=== PATIENT | female | born 1980 | race Caucasian/White ===

== ENCOUNTER 2019-07-18 08:47 | Inpatient (IN) | payer BC ==
[2019-07-14 09:48] VITALS: BMI 39.2
[~2019-07-18 08:47] MED LIST: ALBUTEROL SO4 8 GM HFA INHALER IH PRN
[2019-07-18] MEDS ORDERED: SUCCINYLCHOLINE CHLORIDE 200 MG/10 ML SYRINGE ONE (08:59)
[2019-07-18] MEDS ORDERED: PROPOFOL 20 ML ONE (08:59)
[2019-07-18] MEDS ORDERED: ROCURONIUM BROMIDE 50 MG/5 ML SYRINGE ONE (08:59)
[2019-07-18] MEDS ORDERED: MIDAZOLAM HCL 2 MG/2 ML SINGLE DOSE VIAL ONE (09:01)
[2019-07-18] MEDS ORDERED: ROPIVACAINE HCL 0.5% 30ML VIAL ONE (09:02)
[2019-07-18] MEDS ORDERED: BUPIVACAINE HCL 0.25% 125 MG/50 ML VIAL ONE (09:18)
--- NOTE | 2019-07-18 09:44 | HP ---
Admitting History and Physical - Admission Chief Complaint: Morbid obesity History Source: Patient Limitations to Obtaining History: No Limitations - Past Medical History Pulmonary: Yes: Asthma ...LMP: 06/23/19 ...: No - Past Surgical History Additional Past Surgical History: C spine fusion - Smoking History Smoking history: Former smoker Have you smoked in the past 12 months: No If you are a former smoker, when did you quit?: 05/27 - Alcohol/Substance Use Hx Alcohol Use: No - Social History ADL: Independent Home Medications - Allergies Allergies/Adverse Reactions: Allergies Allergy/AdvReac Type Severity Reaction Status Date / Time No Known Allergies Allergy Verified 07/14/19 09:37 - Home Medications Home Medications: Ambulatory Orders Albuterol Sulfate [Albuterol Sulfate Hfa] 1 puff IH ASDIR PRN 07/14/19 Cabergoline 0.5 mg PO ASDIR 07/14/19 Calcium Carbonate [Tums] 200 mg PO DAILY 07/14/19 Cholecalciferol (Vitamin D3) [Vitamin D3] 1,000 unit PO DAILY 07/14/19 Multivitamins [Tab-A-Vit -] 1 tab PO DAILY 07/14/19 Oxycodone HCl [Oxycodone HCl ER] 20 mg PO BID 07/14/19 Dextroamphetamine/Amphetamine [Adderall Xr 30 mg Capsule] 60 mg PO DAILY Docusate Sodium [Colace -] 100 mg PO TID #90 capsule 07/18/19 Famotidine [Pepcid] 20 mg PO BID #60 tablet 07/18/19 Ondansetron [Zofran -] 8 mg PO TID #30 tablet 07/18/19 Family Medical History Family History: Denies Review of Systems - Review of Systems Constitutional: denies: Chills, Fever Neck: reports: No Symptoms Cardiovascular: reports: No Symptoms Respiratory: reports: No Symptoms Gastrointestinal: reports: No Symptoms Neurological: reports: No Symptoms Pain Intensity: 0 Physical Examination Vital Signs: Vital Signs Temperature 97.8 F 07/18/19 09:26 Pulse Rate 79 07/18/19 09:26 Respiratory Rate 20 07/18/19 09:26 Blood Pressure 113/67 07/18/19 09:26 O2 Sat by Pulse Oximetry (%) Constitutional: Yes: Calm HENT: Yes: WNL Neck: Yes: WNL Cardiovascular: Yes: Regular Rate and Rhythm Respiratory: Yes: Regular Gastrointestinal: Yes: Soft, Abdomen, Obese Neurological: Yes: Alert, Oriented Problem List - Problems (1) Morbid obesity due to excess calories Code(s): E66.01 - MORBID (SEVERE) OBESITY DUE TO EXCESS CALORIES Assessment/Plan Laparoscopic possible open vertical sleeve gastrectomy possible liver biopsy, upper endoscopy
[2019-07-18] MEDS ORDERED: LIDOCAINE HCL/PF 2% SDV 5ML VIAL ONE (09:51)
[2019-07-18] MEDS ORDERED: ONDANSETRON 4 MG/2 ML VIAL ONE ×2 (10:17→10:57)
[2019-07-18] MEDS ORDERED: DEXAMETHASONE SOD PHOSPHATE 4 MG/1 ML VIAL ONE (10:17)
[2019-07-18] MEDS ORDERED: ceFAZolin SODIUM 1 GM VIAL ONE (10:25)
[2019-07-18] MEDS ORDERED: HYDROmorphone HCL/PF 1 MG/ML AMP ONE ×2 (10:30→11:24)
[2019-07-18] MEDS ORDERED: NEOSTIGMINE METHYLSULFATE 0.5 MG/ML - 10 ML MDV ONE (11:04)
[2019-07-18] MEDS ORDERED: GLYCOPYRROLATE 0.2 MG/1 ML VIAL ONE (11:07)
[2019-07-18] MEDS ORDERED: BUPIVACAINE HCL/PF 0.25% (2.5MG/ML) 10 ML VIAL IJ ONE (11:09)
--- NOTE | 2019-07-18 11:18 | OP ---
Operative Note - Note: Operative Date: 07/18/19 Pre-Operative Diagnosis: Morbid obesity Operation: Diagnostic laparoscopy. Laparoscopic vertical sleeve gastretcomy. Laparoscopic wedge liver biopsy Post-Operative Diagnosis: Same as Pre-op (as well as hepatomegaly) Surgeon: Graeme Chavis Licensed Electrician: Pa Gutierres Anesthesia: General Specimens Removed: Greater curvature of stomach. Liver biopsy Estimated Blood Loss (mls): 30 Drains & Tubes with Location: 36 Fr Bougie Operative Report Dictated: Yes
[2019-07-18] MEDS ORDERED: HYDROmorphone HCL 0.5 MG/0.5 ML SYRINGE ONE ×5 (11:35→12:48)
[2019-07-18] MEDS ORDERED: HYDROmorphone HCL CARPU-JECT 1 MG/1 ML DISP.SYRIN IVPUSH PRN ×2 (11:44→13:32)
[2019-07-18] MEDS ORDERED: FAMOTIDINE 20 MG/50 ML IVPB 20 MG/50 ML MG IVPB ONE (11:45)
[2019-07-18] MEDS ORDERED: FAMOTIDINE 20 MG PREMIXED IVPB IVPB ONE (12:00)
[2019-07-18] MEDS ORDERED: ACETAMINOPHEN 1000 MG/100 ML VIAL (NON FORMULARY) IVPB SCH (12:00)
[2019-07-18] MEDS ORDERED: METOCLOPRAMIDE HCL INJECTION 10 MG/2 ML VIAL IVPUSH SCH (12:00)
--- NOTE | 2019-07-18 12:29 | SPEC ---
DATE OF OPERATION: 07/18/2019 PLACE OF SERVICE: [facility], [address] [place] [address] SURGEON: Graeme Chavis MD BLOCK CLEANER: Pa Gutierres MD PREOPERATIVE DIAGNOSIS: Morbid obesity. POSTOPERATIVE DIAGNOSES: 1. Morbid obesity. 2. Hepatomegaly. PROCEDURES: 1. Diagnostic laparoscopy. 2. Laparoscopic vertical sleeve gastrectomy. 3. Laparoscopic wedge liver biopsy. ESTIMATED BLOOD LOSS: 30 mL. DRAIN: None. ANESTHESIA: GET. BOUGIE SIZE: 36-Kyrgyz. SPECIMENS: 1. Greater curvature of the stomach. 2. Liver biopsy. REASON FOR PROCEDURE: This is a 39-year-old female who presents for weight loss options. After describing different options, she decided to proceed with a laparoscopic, possible open, vertical sleeve gastrectomy, possible liver biopsy, upper endoscopy. The patient was seen by the respective subspecialties and cleared for surgery. The risks and benefits of the procedure were explained. These included bleeding, infection, hernia, IL, DVT, PE, injury to surrounding structures including the liver, colon, bowel, spleen, esophagus, vessel injury, nerve injury, weight regain, gastric leak, staple line leak, sleeve leak, obstruction, vitamin deficiency, hair loss and as some of the possible complications. The patient understood and signed informed consent. DESCRIPTION OF PROCEDURE: The patient was placed supine on the operating room table. The patient underwent general endotracheal intubation. The arms were brought out at 90 degrees and secured. A footboard was placed and the legs were secured laterally with padding. The abdomen was prepped and draped in the usual sterile fashion. A timeout was performed. An incision was made in the left upper quadrant and a Veress needle inserted. Pneumoperitoneum was established. Subsequently, the Veress needle was removed and a 5-mm trocar was placed under direct visualization with the laparoscope. The laparoscopic camera was then inserted and inspection of the abdominal cavity was performed. An incision was then made in the supraumbilical area and a 15-mm trocar was placed under direct visualization. A 5-mm trocar was then placed in the right upper quadrant and a 5-mm trocar was placed below the left subcostal margin. A stab wound was made in the subxiphoid area and a Maritza clamp inserted and removed to dilate the tract. A Dilan liver retractor was inserted. The post was secured at the bedside by the nursing staff. The patient was placed in steep reverse Trendelenburg position and the Dilan liver retractor was used to secure the liver towards the anterior abdominal wall. The pylorus was identified and 6 cm proximal to it, the lesser sac was entered using the LigaSure device. All lateral attachments to the greater curvature of the stomach, including the short gastric vessels, were ligated using the LigaSure device toward the gastrosplenic and gastrophrenic ligaments. Once this was done in its entirety, it was confirmed that all tubes within the nasal or oropharyngeal cavity, including a temperature probe were removed by Anesthesia. The bougie was then inserted by Anesthesia. Transection of the stomach was then begun staying adjacent to the bougie but away from the angularis. Transection of the stomach was performed near the portion of the stomach where the lesser sac was entered. Two laparoscopic Endo-MARY KATE black yas were used at this location. Laparoscopic Endo MARY KATE purple staple loads were then used for the remainder of the transection until the greater curvature of the stomach was fully transected. This was done staying close to the bougie. Care was taken to stay away from the angle of His cephalad. The staple line was then inspected. Hemostasis was identified. A leak test was then performed. It was clamped distally to the staple line. Irrigation solution was placed in the left upper quadrant and air was insufflated by Anesthesia into the sleeve. No leaks were identified. No obstruction was identified. This was done through the entirety of the staple line. The stomach was suctioned and the bougie removed fully intact under direct visualization. At this point, the irrigation solution was suctioned and again, hemostasis was noted. A wedge liver biopsy was then performed. The left lobe of the liver was identified. A portion of the edge of the left lobe of the liver was grasped. Using electrocautery, a wedge of the left liver was excised. The specimen was removed and sent off the field. Hemostasis of the wedge liver biopsy site was attained and noted using electrocautery. The 15-mm supraumbilical trocar was then removed and the greater curvature specimen removed from the site using a sponge stick viveros. A Delta-Flory device was then used to close the fascia with a 0 Vicryl suture at the site. Again, hemostasis was noted. The Dilan liver retractor was then removed under direct visualization. Pneumoperitoneum was desufflated. Hemostasis was noted at all incision sites and Marcaine was injected at all incision sites. A 3-0 Vicryl suture was used to close the deep subcutaneous tissue at the 15-mm incision site. All incision sites were closed using 4-0 Biosyn. Sterile dressings were applied. The patient tolerated the procedure well and was transferred to the recovery room in stable condition. Edith [id number] MTDD
[2019-07-18 13:19] LABS: HEMATOCRIT 40.1 % (32.4-45.2); HEMOGLOBIN 13.5 GM/dl (10.7-15.3); MCH 30.1 pg (25.7-33.7); MCHC 33.6 g/dl (32.0-36.0); MEAN CELL VOLUME 89.6 fl (80-96); MEAN PLT VOLUME 9.6 fl (7.5-11.1); PLATELET COUNT 318 K/MM3 (134-434); RBC 4.48 M/mm3 (3.60-5.2); RDW 11.8 % (11.6-15.6); WHITE BLOOD COUNT 12.3 K/mm3 (4.0-10.8)
[2019-07-18 13:21] LABS: ALBUMIN 3.7 g/dl (3.4-5.0); BILIRUBIN,TOTAL 0.6 mg/dl (0.2-1); CALCIUM 8.6 mg/dl (8.5-10); CREATININE 0.8 mg/dl (0.55-1.3); POTASSIUM 4.4 mmol/L (3.5-5.1); TOT PROT 6.3 g/dl (6.4-8.2)
[2019-07-18] MEDS: HYDROmorphone HCL CARPU-JECT 1 MG/1 ML DISP.SYRIN IVPB PRN ×3 (13:48→23:37)
[2019-07-18] MEDS: SODIUM CHLORIDE 1,000 ML IV SCH (15:30)
[2019-07-18] MEDS: ONDANSETRON 4 MG/2 ML VIAL IVPUSH SCH ×2 (18:00→20:23)
[2019-07-18] MEDS: ACETAMINOPHEN 1000 MG/100 ML VIAL (NON FORMULARY) IVPB SCH (18:16)
[2019-07-18] MEDS: METOCLOPRAMIDE HCL INJECTION 10 MG/2 ML VIAL IVPUSH SCH (18:16)
[2019-07-18] MEDS: FAMOTIDINE 20 MG/50 ML IVPB 20 MG/50 ML MG IVPB SCH (21:03)
[2019-07-18] MEDS: ENOXAPARIN NA (PORCINE) 40 MG/0.4 ML DISP.SYRIN SQ SCH (21:03)
[2019-07-19] MEDS: METOCLOPRAMIDE HCL INJECTION 10 MG/2 ML VIAL IVPUSH SCH ×3 (01:06→13:26)
[2019-07-19] MEDS: ONDANSETRON 4 MG/2 ML VIAL IVPUSH SCH ×5 (01:06→16:00)
[2019-07-19] MEDS: ACETAMINOPHEN 1000 MG/100 ML VIAL (NON FORMULARY) IVPB SCH ×2 (01:07→06:39)
[2019-07-19] MEDS: HYDROmorphone HCL CARPU-JECT 1 MG/1 ML DISP.SYRIN IVPB PRN ×3 (04:13→13:25)
[2019-07-19] MEDS ORDERED: ACETAMINOPHEN INJECTION 100 ML IVPB ONE (06:31)
--- NOTE | 2019-07-19 07:51 | PN ---
Addendum entered and electronically signed by Sachin Wright PA 07/19/19 11:32: UGI officially read as no extravasation of contrast. No evidence of gastric outlet obstruction. Start BST1 diet. DC home if tolerates Original Note: Progress Note (short form) - Note Progress Note: BARIATRIC SURGERY No acute events per RN notes. Alert. C/o mild incisional tenderness. Adequate pain control w/ medications ordered. Using her incentive spirometer as directed. OOB and ambulating unassisted. Voiding spontaneously. Denies n/v/f/c, CP, palpitations, SOB or MONTANO. Last Vital Signs Temp Pulse Resp BP Pulse Ox 97.6 F 84 16 118/71 100 07/19/19 03:00 07/19/19 03:00 07/19/19 03:00 07/19/19 03:00 07/19/19 03:00 Gen: alert. nad ABD: obese habitus. All surgical ports c/d/i. LE: SCDs bilat <Sachin Wirght - Last Filed: 07/19/19 07:51> - Note Progress Note: POD 1 No acute events Vital Signs Period Temp Pulse Resp BP Sys/Iros Pulse Ox Last 24 Hr 97.6 F-98.1 F 64-84 16-20 117-125/60-78 97-100 Abd soft CBC, BMP 07/19/19 12:25 UGI: no leak/obstruction Clears Discharge planning <Graeme Chavis - Last Filed: 07/19/19 12:55> Problem List - Problems (1) Morbid obesity due to excess calories Assessment/Plan: POD #1 s/p Laparoscopic vertical sleeve gastrectomy. Wedge liver biopsy. Going for UGI this morning, if negative will begin Bariatric Stage 1 Diet. Cont OOB and ambulate Incentive spirometer Pain management DVT PPX If tolerates diet will DC home later today Code(s): E66.01 - MORBID (SEVERE) OBESITY DUE TO EXCESS CALORIES (2) Hepatomegaly Code(s): R16.0 - HEPATOMEGALY, NOT ELSEWHERE CLASSIFIED <Sachin Wright - Last Filed: 07/19/19 07:51> - Problems (1) Morbid obesity due to excess calories Code(s): E66.01 - MORBID (SEVERE) OBESITY DUE TO EXCESS CALORIES <Graeme Chavis - Last Filed: 07/19/19 12:55>
[2019-07-19 08:16] LABS: HEMATOCRIT 38.5 % (32.4-45.2); HEMOGLOBIN 12.9 GM/dl (10.7-15.3); MCHC 33.5 g/dl (32.0-36.0); MEAN CELL VOLUME 89.7 fl (80-96); MEAN PLT VOLUME 9.6 fl (7.5-11.1); PLATELET COUNT 286 K/MM3 (134-434); RDW 11.7 % (11.6-15.6); WHITE BLOOD COUNT 18.3 K/mm3 (4.0-10.8)
[2019-07-19 09:05] LABS: ALBUMIN 3.5 g/dl (3.4-5.0); BILIRUBIN,TOTAL 0.8 mg/dl (0.2-1); CALCIUM 8.2 mg/dl (8.5-10); CREATININE 0.7 mg/dl (0.55-1.3); POTASSIUM 3.8 mmol/L (3.5-5.1); TOT PROT 6.1 g/dl (6.4-8.2)
[2019-07-19] MEDS: FAMOTIDINE 20 MG/50 ML IVPB 20 MG/50 ML MG IVPB SCH (09:51)
[2019-07-19] MEDS: ENOXAPARIN NA (PORCINE) 40 MG/0.4 ML DISP.SYRIN SQ SCH (09:51)
[2019-07-19] MEDS: SODIUM CHLORIDE 1,000 ML IV SCH (11:57)
[2019-07-19 12:39] LABS: HEMOGLOBIN 12.7 GM/dl (10.7-15.3); WHITE BLOOD COUNT 16.8 K/mm3 (4.0-10.8)
[2019-07-19 12:44] LABS: HEMATOCRIT 38.3 % (32.4-45.2); MCH 29.9 pg (25.7-33.7); MCHC 33.3 g/dl (32.0-36.0); MEAN CELL VOLUME 89.7 fl (80-96); MEAN PLT VOLUME 8.9 fl (7.5-11.1); PLATELET COUNT 298 K/MM3 (134-434); RBC 4.27 M/mm3 (3.60-5.2); RDW 11.5 % (11.6-15.6)
[2019-07-19 12:52] LABS: CALCIUM 8.3 mg/dl (8.5-10); CREATININE 0.7 mg/dl (0.55-1.3); POTASSIUM 3.6 mmol/L (3.5-5.1)
[2019-07-19] MEDS ORDERED: oxyCODONE HCL 5 MG TABLET PO PRN (12:55)
[2019-07-19] MEDS ORDERED: SODIUM CHLORIDE 1,000 ML IV SCH (13:00)
[2019-07-19 13:39] LABS: PLATELET ESTIMATE ADEQUATE
--- NOTE | 2019-07-19 15:16 | PN ---
Progress Note, Physician Chief Complaint: s/p gastric sleeve under general anesthesia History of Present Illness: post op day one with TAPS block for post op pain control - Current Medication List Current Medications: Active Medications Albuterol Sulfate (Ventolin Hfa Inhaler -) 2 puff IH Q6H PRN PRN Reason: WHEEZING Enoxaparin Sodium (Lovenox -) 40 mg SQ BID [facility] Last Admin: 07/19/19 09:51 Dose: 40 mg Hydromorphone HCl (Dilaudid Injection -) 1 mg IVPB Q3H PRN PRN Reason: PAIN LEVEL 4 - 6 Last Admin: 07/19/19 13:25 Dose: 1 mg Famotidine/Sodium Chloride (Pepcid 20 Mg Premixed Ivpb -) 20 mg in 50 mls @ 100 mls/hr IVPB BID [facility] Last Admin: 07/19/19 09:51 Dose: 100 mls/hr Sodium Chloride (Normal Saline -) 1,000 mls @ 75 mls/hr IV ASDIR PB Last Admin: 07/19/19 13:26 Dose: 75 mls/hr Metoclopramide HCl (Reglan Injection -) 10 mg IVPUSH Q6H PB Last Admin: 07/19/19 13:26 Dose: 10 mg Ondansetron HCl (Zofran Injection) 4 mg IVPUSH Q4H [facility] Last Admin: 07/19/19 13:25 Dose: 4 mg Oxycodone HCl (Roxicodone -) 5 mg PO Q4H PRN PRN Reason: PAIN LEVEL 4 - 6 - Objective Vital Signs: Vital Signs Temperature 98.1 F 07/19/19 11:00 Pulse Rate 72 07/19/19 11:00 Respiratory Rate 17 07/19/19 11:00 Blood Pressure 125/78 07/19/19 11:00 O2 Sat by Pulse Oximetry (%) 100 07/19/19 03:00 Cardiovascular: Yes: WNL Respiratory: Yes: WNL Gastrointestinal: Yes: WNL Labs: CBC, BMP 07/19/19 12:25 07/19/19 12:25 Assessment/Plan No adverse anesthetic complications, dept of anesthesia will sign off care at this time
[2019-07-19 15:27] VITALS: BP 135/77; PULSE 65; TEMP 98
--- NOTE | 2019-07-21 09:47 | PATH ---
Surgical Pathology Report Patient Name: VELMA SANCHEZ Med. Rec. #: [id number] /Age/Gender: 1980 (Age: 39) / F Account: [id number] Location: [facility] MED-SURG Taken: 07/18/2019 Received: 07/18/2019 Reported: 07/21/2019 Physicians: Graeme Chavis M.D. Specimen(s) Received A: GREATER CURVATURE STOMACH B: LIVER BIOPSY Clinical History Morbid obesity Final Diagnosis A. GREATER CURVATURE, STOMACH, LAPAROSCOPIC GASTRIC SLEEVE EXCISION: PORTION OF STOMACH SHOWING MILD CHRONIC MUCOSAL INFLAMMATION. IMMUNOSTAIN IS NEGATIVE FOR H. PYLORI ORGANISMS. B. LIVER, BIOPSY: LIVER SHOWING MILD STEATOSIS (< 5%). TRICHROME STAIN SHOWS NO APPRECIABLE INCREASE IN FIBROSIS. IRON STAIN SHOWS NO INCREASE IN IRON DEPOSITS. Electronically Signed Annamaria Bob M.D. Gross Description A. Received in formalin, labeled "greater curvature of stomach," is a 82 gram, 18.0 x 3.0 x 2.8 cm. portion of stomach with a stapled margin of resection. The serosa is lund-vernon with minimal attached fat. The mucosa is lund-pink with normal folds. No mucosal masses are identified. Ear Pull Machine Operator sections are submitted in one cassette. B. Received in formalin labeled "liver biopsy," is a 2.2 x 1.3 x 0.6 cm lund portion of soft tissue, consistent with a liver biopsy. The specimen is bisected and entirely submitted in one cassette. /07/19/201907/19/2019
== END 2019-07-19 15:53 | disposition home or self-care (01) | DRG 621 ==
LOC: FM/S 08:47
PROVIDERS: ADMIT Surgery; ATTEND Surgery
PROC: 0DJ04ZZ Inspection of Upper Intestinal Tract, Percutaneous Endoscopic Approach (ICD-10-PCS; 2019-07-18)
PROC: 0DB64Z3 Excision of Stomach, Percutaneous Endoscopic Approach, Vertical (ICD-10-PCS; principal; 2019-07-18 10:30)
PROC: 0FB24ZX Excision of Left Lobe Liver, Percutaneous Endoscopic Approach, Diagnostic (ICD-10-PCS; 2019-07-18 10:30)
DX: E66.01 Morbid (severe) obesity due to excess calories (principal); Z68.41 Body mass index [BMI] 40.0-44.9, adult; R16.0 Hepatomegaly, not elsewhere classified
CPT/HCPCS: 36415; 74241-TC-FY; 80048; 80053; 84703; 85025; 85027; 94760; J0131; J7030